=== PATIENT | male | born 1950 | race Caucasian/White ===

== ENCOUNTER 2017-07-04 22:19 | Emergency (ER) | payer OTHER ==
[~2017-07-04] VITALS: Ht 175.3 cm; Wt 88.5 kg
[~2017-07-04 22:19] MED LIST: ASPIRIN325 MG PO; EPIPEN ADU0.3 MG/0.3 IM; LISINOPRIL20 MG PO; LOPRESSOR50 MG PO; PRAVASTATIN SOD80 MG PO; SIMVASTATIN40 MG PO
[2017-07-04] MEDS ORDERED: PERCOCET 5/31 TABLET PO (23:30)
[2017-07-04] MEDS ORDERED: NAPROXEN500 MG PO (23:30)
[2017-07-04 23:49] VITALS: BP 141/80
== END 2017-07-04 23:51 | disposition home or self-care (01) ==
LOC: EME 22:19
DX: S22.31XA Fracture of one rib, right side, initial encounter for closed fracture (principal); W18.30XA Fall on same level, unspecified, initial encounter; I10 Essential (primary) hypertension; E78.5 Hyperlipidemia, unspecified; F17.200 Nicotine dependence, unspecified, uncomplicated; Z79.82 Long term (current) use of aspirin
CPT/HCPCS: 71046; 99281; 99284